=== PATIENT | male | born 2000 | race Caucasian/White ===

== ENCOUNTER 2025-04-27 10:16 | Emergency (ER) | payer BC, SELFPAY ==
--- NOTE | 2025-04-27 10:18 | ED.SKABFB ---
HPI - Skin/Abscess/Foreign Bdy General Chief complaint: Wound/Laceration Stated complaint: Spider Bite Time Seen by Provider: 04/27/25 10:26 Source: patient and RN notes reviewed Mode of arrival: ambulatory Limitations: no limitations History of Present Illness HPI narrative: 24-year-old male presents to the [facility] with redness, inflammation, drainage from the left upper medial posterior thigh. Patient states 4-5 days This started. Got worse today. No history of anything similar. No treatment prior to arrival. Onset (ago): day(s) (4-5) Treatments prior to arrival: none Related Data Allergies Allergy/AdvReac Type Severity Reaction Status Date / Time No Known Allergies Allergy Verified 04/27/25 10:25 Review of Systems Review of Systems: All systems reviewed & are unremarkable except as noted in HPI and below Constitutional: Constitutional: Reports no additional constitutional complaints ENT: Reports system reviewed and no additional complaints, except as documented Cardiovascular: Cardiovascular: Reports no additional cardiovascular complaints, Denies chest pain and Denies dyspnea Respiratory: Respiratory: Reports no additional respiratory complaints, Denies chest congestion, Denies cough and Denies dyspnea Musculoskeletal: Musculoskeletal: Reports no additional musculoskeletal complaints Integumentary/Breasts: Skin/Breast: Reports as per HPI, Reports erythema, Reports sores and Reports wounds PMFSH Comments At the time of my signature, I reviewed and agree with the nursing past medical, surgical, social, and family history. There is no relevant family history pertinent to the patient complaint. Exam Const: General: cooperative, healthy appearing, comfortable, no acute distress, well developed, alert and well nourished Nutritional Appearance: well nourished and obese Orientation/consciousness: patient oriented x3 Limitations: no limitations HENMT: Head: normal to inspection Eyes: General: appearance normal, both eyes and all related structures Alignment and Position: alignment normal Neck: Neck: normal visual inspection, full ROM, no lymphadenopathy and no meningeal signs Chest: Chest palpation & inspection: normal inspection of the chest Resp: Effort & Inspection: normal respiratory effort and able to speak in complete sentences Cardio: Rate: regular rate Skin: General skin exam: normal color and no rashes or lesions noted Other: multiple scabbed areas noted to surrounding tissue without surrounding erythema to those areas. Full body images:  1. indurated area center, 1.5 by 2 cm reddened area extends 9 by 6 cm periods does not extend up into the buttock or testicular area Neuro: General: patient oriented x3, gait normal, moves all extremities and no meningeal signs Cognition (Neuro): normal cognition Speech: normal speech Gait exam (Neuro): Normal gait present Extrem: General: normal to inspection, full ROM, capillary refill normal and normal gait Psych: Appearance: grossly normal and well kempt Mental Status: mental status grossly normal Speech and movement: Normal speech and movement present and Clear speech present Affect: normal affect Attitude: cooperative Course Course Level of Care: Express Care Visit Vital Signs Vital signs: Vital Signs Temperature 97.7 F 04/27/25 10:27 Pulse Rate 110 H 04/27/25 10:27 Respiratory Rate 16 04/27/25 10:27 Blood Pressure 126/98 H 04/27/25 10:27 Pulse Oximetry 100 04/27/25 10:27 Oxygen Delivery Room Air 04/27/25 10:27 Temperature 97.7 F 04/27/25 10:27 Pulse Rate 110 H 04/27/25 10:27 Respiratory Rate 16 04/27/25 10:27 Blood Pressure 126/98 H 04/27/25 10:27 Pulse Oximetry 100 04/27/25 10:27 Oxygen Delivery Room Air 04/27/25 10:27 reviewed Procedures Abscess I/D lower extremity: Date of Incision: 04/27/25 Time of Incision: 10:50 Side (if applicable): left Local Anesthetic: lidocaine 1% (6) Amount of anesthesia used (mL): 6 Technique: incised with #11 blade Amount of fluid expressed (mL): 3 Packing used?: none I&D Results: Pus and Blood MDM MDM Narrative Medical decision making narrative: Patient sitting in exam room. Presents with father. 4-5 days of increasing redness, discomfort to the upper medial posterior thigh. Has some erythema. Has drainage. Area cleaned with Betadine scant amount of purulent drainage, collected and sent for culture. Patient appropriate for outpatient treatment with close follow-up. Discharge instructions reviewed with patient, as well as provided in writing per nursing staff. The instructions also include specific and strict return/GO TO THE ER as well as f/u information. All questions have been answered, and the patient deny any further questions with discharge and discharge plan. Some parts of this dictation were generated by voice recognition software and may contain typographical and/or grammatical inaccuracies. Differential Diagnosis Differential Diagnosis: Differential diagnostic considerations for skin/abscess/foreign body issues include abscess of skin or subcutaneous tissue, viral exanthem, dermatophytosis, urticaria, herpes zoster, allergic reaction to drug, cellulitis, eczema, insect bites, impetigo, contact dermatitis, vasculitis, hydradenitis Discharge Plan Discharge Clinical Impression: Abscess, Cellulitis Patient Disposition: Home Condition: Stable Instructions: Antibiotic Form, Cellulitis (ED), Abscess (ED), Hidradenitis Suppurativa (ED) Additional Instructions: DO NOT pick at the area. This will only make the area worse and drive infection deeper. Shower and wash with soapy water. Keep area clean and dry. Take all the antibiotics as prescribed. Make sure to keep a dressing in place especially while it is draining apply warm compresses every 2-3 hours for 15-20 minutes while awake. Follow up with PCP in 7-10 days Go to the ER for new or worsening symptoms Patient Language: Austrian Prescriptions: New doxycycline monohydrate 100 mg tablet 100 mg PO BID Qty: 20 0RF Follow-up/Referrals: Ingrid Whalen MD [Physician, Plastic Surgery] Mary Gacria MD [Physician, General Surgery] Tonio Adams MD [Physician, Family Practice] UNKNOWN,DOCTOR [Non-Staff] Stand Alone Forms: Work/School Release IP Time of Disposition: 10:58
[2025-04-27 10:27] VITALS: BP 126/98; PULSE 110; RESP 16; TEMP 36.5; O2SAT 100
[2025-04-27] MEDS: LIDOCAINE 1% LOCAL INJ 2 ML AMPUL 6 ML INFILTRATE (10:42)
== END 2025-04-27 11:06 | disposition home or self-care (01) ==
PROVIDERS: Emergency Provider Nurse Practitioner
DX: L02.416 Cutaneous abscess of left lower limb (principal); L03.116 Cellulitis of left lower limb
CPT/HCPCS: 10060; 99213; G0463; J2003